=== PATIENT | male | born 1935 | race Caucasian/White ===

== ENCOUNTER → 2017-02-10 11:49 | Emergency (ER) | payer MEDICARE | END | disposition home or self-care (01) | LOC: D.ER 11:49 | DX: J20.9 Acute bronchitis, unspecified (principal); Z85.72 Personal history of non-Hodgkin lymphomas; I10 Essential (primary) hypertension; R09.89 Other specified symptoms and signs involving the circulatory and respiratory systems ==

== ENCOUNTER 2017-05-29 08:45 | Emergency (ER) | payer MEDICARE ==
[2017-05-29 09:30] LABS: HEMATOCRIT 43.6 % (42.0-54.0); HEMOGLOBIN 14.9 g/dL (13.5-17.5); MCH 36.3 pg (26.0-34.0); MCHC 34.2 g/dL (31.0-37.0); MCV 106.1 fL (80.0-100.0); MEAN PLATELET VOLUME 12.2 fL (7.4-10.4); RBC 4.11 10x6/uL (4.20-6.10); RDW 13.2 % (11.5-14.5)
[2017-05-29 09:38] LABS: PLATELET COUNT 53 10x3/uL (130-400)
[2017-05-29 10:12] LABS: ALBUMIN 2.7 g/dL (3.4-5.0); ALKALINE PHOSPHATASE 53 U/L (46-116); ALT (SGPT) 15 U/L (10-68); BILIRUBIN - TOTAL 1.58 mg/dL (0.2-1.3); CALC OSMOLALITY 274 mosm/kg (275-300); CALCIUM 7.6 mg/dL (8.5-10.1); CARBON DIOXIDE 29.6 mmol/L (21.0-32.0); CHLORIDE - SERUM 101 mmol/L (98-107); CREATININE - SERUM 0.8 mg/dL (0.6-1.3); GLUCOSE 88 mg/dL (74-106); POTASSIUM - SERUM 3.2 mmol/L (3.5-5.1); PROTEIN - SERUM 5.8 g/dL (6.4-8.2); SODIUM 139 mmol/L (136-145); UREA NITROGEN 8 mg/dL (7-18); eGFR NON AFRICAN AMERICAN > 90 mL/min (90-120)
[2017-05-29 10:19] LABS: LYMPHOCYTES 19 % (15-50); MONOCYTES 21 % (2-11); NEUTROPHILS 49 % (40-80); PLATELET ESTIMATE DECREASED
[2017-05-29 10:41] LABS: TROPONIN-I 0.046 ng/mL (0.000-0.060)
== END 2017-05-29 11:55 | disposition home or self-care (01) ==
LOC: D.ER 08:45
PROVIDERS: Family Medicine
DX: J11.1 Influenza due to unidentified influenza virus with other respiratory manifestations (principal); R19.7 Diarrhea, unspecified; D69.6 Thrombocytopenia, unspecified; R11.10 Vomiting, unspecified

== ENCOUNTER 2017-08-31 16:05 | Inpatient (IN) | payer MEDICARE, BC ==
[~2017-08-31] VITALS: Ht 177.8 cm; Wt 69.3 kg
--- NOTE | ~2017-08-31 | EC ---
PATIENT:MARCOS MAJANO DATE OF SERVICE: 08/31/17 SEX: M MEDICAL RECORD: [id number] DATE OF : 33 LOCATION:D.M2 D.212 AGE OF PATIENT: 81 ADMISSION DATE: 08/31/17 REFERRING PHYSICIAN: INTERPRETING PHYSICIAN: JAZMIN SWAN MD ECHOCARDIOGRAM REPORT ECHO CHARGES 4 ECHO COMPLETE Date: 09/01 CLINICAL DIAGNOSIS: SOB ECHOCARDIOGRAPHIC MEASUREMENTS (adult normal given) AC root (d.<3.7cm) 3.3 cm LV Septum d (<1.2 cm> 1.4 cm Valve Excursion 1.2 cm LV Septum (systole) 1.9 cm Left Atria (s.<4.0cm> 36.6 cm LVPW d(<1.2cm) 1.6 cm RV (d.<2.3cm) 4.8 cm LVPW (sytole) 1.8 cm LV diastole(<5.6CM) 5.3 cm MV E-F(>70mm/sec) cm LV systole 3.5 cm LVOT Diameter 1.7 cm MV exc.(>10mm) 1.2 cm Est.ejection fraction (50-75%) % DOPPLER: LVIT cm/sec A 104 cm/sec E 77.0 cm/sec LA cm/sec RVSP 47 mmHg LVOT 105 cm/sec AOP1/2T m/s Asc. Ao 182 cm/sec RVOT 96 cm/sec RA cm/sec PA 117 cm/sec AV Gradient Peak 13.23mmHg AV Mean 6.96 mmHg AV Area 1.3 cm MV Gradient Peak 4.59 mmHg MV Mean 1.94 mmHg MV Area cm COMMENTS: Secured Entrance Monitor: Jorge QUEEN Metal Template Maker: 3 Dr. Seymour TAPE# PACS Pericardial Effusion N DATE OF SERVICE: 09/01/2017 PROCEDURE: Echocardiogram. FINDINGS: 1. Left ventricular chamber size is within normal limits. Left ventricular systolic function is normal. Overall ejection fraction estimated at 55%. 2. Left atrium, right atrium, and right ventricle chamber sizes are within normal limits. 3. Valvular structures have normal structure and motion. ECHOCARDIOGRAM REPORT [id number] MARCOS MAJANO 4. Doppler interrogation reveals mild to moderate mitral regurgitation, mild to moderate tricuspid regurgitation, no other valvular insufficiency or stenosis. Pulmonary systolic pressure is estimated 47 mmHg. 5. No evidence of pericardial effusion or left ventricular thrombus. TRANSINT:[id number] Voice Confirmation ID: [id number] DOCUMENT ID: [id number] JAZMIN SWAN MD at 0916 CC: [id number] DICTATION DATE: 09/01/17 1315 TAILOR HELPER: 09/01/17 1324 DIS IN 09/01/17 [facility] [address] [place] [id number]
[2017-08-31] MEDS ORDERED: IMBRUVICA140 MG ×2 (16:28→16:33)
[2017-08-31] MEDS ORDERED: COREG12.5 MG PO (16:29)
[2017-08-31 17:20] LABS: BASOPHILS 0.3 % (0-2); EOSINOPHILS 0.8 % (0-7); HEMATOCRIT 44.5 % (42.0-54.0); HEMOGLOBIN 15.3 g/dL (13.5-17.5); IMMATURE GRANULOCYTES 1.8 % (0-5); LYMPHOCYTES 16.5 % (15-50); MCH 37.2 pg (26.0-34.0); MCHC 34.4 g/dL (31.0-37.0); MCV 108.3 fL (80.0-100.0); MONOCYTES 13.5 % (2-11); NEUTROPHILS 67.1 % (40-80); PLATELET COUNT 104 10x3/uL (130-400); RBC 4.11 10x6/uL (4.20-6.10); WBC 6.1 10x3/uL (4.8-10.8)
[2017-08-31 17:34] VITALS: Ht 177.8 cm; Wt 69.3 kg
[2017-08-31 17:45] LABS: CKMB 1.7 U/L (0.0-3.6); CREATINE KINASE 65 UL (21-232); TROPONIN-I 0.038 ng/mL (0.000-0.060)
[2017-08-31 19:28] LABS: ALBUMIN 3.2 g/dL (3.4-5.0); ALKALINE PHOSPHATASE 55 U/L (46-116); ALT (SGPT) 17 U/L (10-68); CALC OSMOLALITY 289 mosm/kg (275-300); CARBON DIOXIDE 28.1 mmol/L (21.0-32.0); CHLORIDE - SERUM 108 mmol/L (98-107); CREATININE - SERUM 0.6 mg/dL (0.6-1.3); GLUCOSE 95 mg/dL (74-106); POTASSIUM - SERUM 3.9 mmol/L (3.5-5.1); PROTEIN - SERUM 5.9 g/dL (6.4-8.2); SODIUM 145 mmol/L (136-145); UREA NITROGEN 16 mg/dL (7-18); eGFR NON AFRICAN AMERICAN > 90 mL/min (90-120)
[2017-08-31 20:32] VITALS: BP 155/62
[2017-09-01 04:34] LABS: BASOPHILS 0.4 % (0-2); EOSINOPHILS 0.2 % (0-7); HEMATOCRIT 39.7 % (42.0-54.0); HEMOGLOBIN 13.5 g/dL (13.5-17.5); IMMATURE GRANULOCYTES 1.3 % (0-5); LYMPHOCYTES 11.6 % (15-50); MCH 36.7 pg (26.0-34.0); MCV 107.9 fL (80.0-100.0); MEAN PLATELET VOLUME 12.2 fL (7.4-10.4); MONOCYTES 16.2 % (2-11); NEUTROPHILS 70.3 % (40-80); PLATELET COUNT 86 10x3/uL (130-400); RBC 3.68 10x6/uL (4.20-6.10); RDW 13.7 % (11.5-14.5); WBC 5.5 10x3/uL (4.8-10.8)
[2017-09-01 05:04] LABS: ALBUMIN 2.6 g/dL (3.4-5.0); ALKALINE PHOSPHATASE 38 U/L (46-116); BILIRUBIN - TOTAL 2.82 mg/dL (0.2-1.3); CALC OSMOLALITY 284 mosm/kg (275-300); CALCIUM 7.8 mg/dL (8.5-10.1); CARBON DIOXIDE 31.8 mmol/L (21.0-32.0); CHLORIDE - SERUM 107 mmol/L (98-107); CREATINE KINASE 53 UL (21-232); CREATININE - SERUM 0.6 mg/dL (0.6-1.3); GLUCOSE 95 mg/dL (74-106); PROTEIN - SERUM 4.7 g/dL (6.4-8.2); SODIUM 143 mmol/L (136-145); UREA NITROGEN 12 mg/dL (7-18); eGFR NON AFRICAN AMERICAN > 90 mL/min (90-120)
[2017-09-01 05:08] LABS: ALT (SGPT) 12 U/L (10-68); POTASSIUM - SERUM 3.3 mmol/L (3.5-5.1)
[2017-09-01 06:02] VITALS: BP 120/57
[2017-09-01 08:18] VITALS: BP 114/55
[2017-09-01 11:09] VITALS: BP 122/64
[2017-09-01 16:03] VITALS: BP 128/68
== END 2017-09-01 18:16 | disposition home or self-care (01) | DRG 310 ==
LOC: D.M2 16:05
PROVIDERS: Family Medicine
DX: I49.9 Cardiac arrhythmia, unspecified (principal); R06.02 Shortness of breath; I49.3 Ventricular premature depolarization; I44.7 Left bundle-branch block, unspecified; R42 Dizziness and giddiness